=== PATIENT | female | born 1940 | race Caucasian/White ===

== ENCOUNTER 2018-04-27 07:53 | Observation (INO) | payer MEDICARE ==
[2018-04-25 09:04] VITALS: BP 137/63
[2018-04-25 09:10] LABS: BASOPHILS % (AUTO) 1.2 % (0.0-5.0); EOSINOPHILS % (AUTO) 12.1 % (0.0-8.0); HEMATOCRIT 41.4 % (36-48); LYMPHOCYTES % (AUTO) 16.8 % (21.0-51.0); MEAN CORPUSCULAR HEMOGLOBIN 35.2 pg (27.0-33.0); MEAN CORPUSCULAR HGB CONC 33.9 g/dL (32.0-36.0); MEAN CORPUSCULAR VOLUME 103.9 fL (79-99); NEUTROPHILS % (AUTO) 56.9 % (40.0-77.0); PLATELET COUNT (AUTO) 263 K/uL (130-400); RED BLOOD CELL COUNT(AUTO) 3.99 MIL/uL (4.00-5.50); RED CELL DISTRIBUTION WIDTH 12.4 % (11.0-15.5); WHITE BLOOD COUNT (AUTO) 6.1 K/uL (4.8-10.8)
[2018-04-25 09:14] LABS: CREATININE 1.2 mg/dL (0.5-1.5); POTASSIUM 5.3 mmol/L (3.5-5.1)
[2018-04-25 09:20] LABS: INR 0.98 (0.85-1.15); PARTIAL THROMBOPLASTIN TIME 28.2 SEC (26.3-35.5); PROTHROMBIN TIME 10.3 SEC (9.6-11.6)
[2018-04-27] VITALS (10 sets, daily range): BP systolic 105–135; BP diastolic 43–79
[~2018-04-27] VITALS: Ht 157.5 cm; Wt 51.6 kg
[~2018-04-27 07:53] MED LIST: ASPI-555 PO; CEFAZOLIN SODIUM 1 GM VIAL IVP SCH; CLOP75TA14 PO; ESOM40CA PO; LEVO88TA7 PO; METO-408 PO; PIND10TA2 PO; SIMV20TA6 PO; SODIUM CHLORIDE 0.9% 1000ML 1,000 ML IV SCH; VENL150T3 PO
[2018-04-27] MEDS ORDERED: BUPIVACAINE/PF 0.25% 30ML VIAL IJ ONE (12:52)
[2018-04-27] MEDS ORDERED: MEPERIDINE-PF 25 MG/ML SYG ONE ×3 (12:52→13:34)
[2018-04-27] MEDS ORDERED: MIDAZOLAM HCL 1 MG/ML 2ML VIAL ONE ×3 (12:53→13:34)
[2018-04-27] MEDS ORDERED: LIDOCAINE HCL 1% MDV 50ML VIAL ONE (12:53)
[2018-04-27] MEDS ORDERED: IOHEXOL-350 50ML VIAL IV ONE (13:44)
[2018-04-27] MEDS ORDERED: ACETAMINOPHEN 325 MG TAB PO PRN (14:30)
[2018-04-27] MEDS: METOPROLOL TARTRATE 25 MG TAB PO SCH (20:09)
[2018-04-27] MEDS ORDERED: NON-FORMULARY MEDICATION 1 EACH (Pindolol 5 MG) PO SCH (21:00)
[2018-04-27] MEDS ORDERED: SIMVASTATIN 20 MG TABLET PO SCH (21:00)
[2018-04-27] MEDS: ACETAMINOPHEN-CODEINE 300/30MG TAB PO PRN (22:54)
[2018-04-28] VITALS: BP 100/70
[2018-04-28 04:00] VITALS: BP 96/56
[2018-04-28] MEDS ORDERED: LEVOTHYROXINE 88 MCG TABLET PO SCH (06:30)
[2018-04-28 07:39] VITALS: BP 100/61
[2018-04-28] MEDS: METOPROLOL TARTRATE 25 MG TAB PO SCH (08:49)
[2018-04-28] MEDS: ACETAMINOPHEN-CODEINE 300/30MG TAB PO PRN (08:52)
[2018-04-28] MEDS ORDERED: PANTOPRAZOLE SODIUM 40 MG TABLET.DR PO SCH (09:00)
[2018-04-28] MEDS ORDERED: VENLAFAXINE HCL XR 37.5 MG CAP PO SCH (09:00)
[2018-04-28] MEDS ORDERED: ASPIRIN 81MG TAB.CHEW PO SCH (09:00)
[2018-04-28] MEDS ORDERED: CLOPIDOGREL BISULFATE 75 MG TAB PO SCH (09:00)
[2018-04-28 11:07] VITALS: BP 120/64
== END 2018-04-28 13:40 | disposition home or self-care (01) ==
LOC: DAH 07:53 → DAHIP 07:54 → 2DH 15:28
PROVIDERS: ADMIT Internal Medicine Critical Care Medicine; ATTEND Internal Medicine Critical Care Medicine
DX: I49.5 Sick sinus syndrome (principal); R55 Syncope and collapse; I44.1 Atrioventricular block, second degree; I10 Essential (primary) hypertension; E78.5 Hyperlipidemia, unspecified; E03.9 Hypothyroidism, unspecified; I25.10 Atherosclerotic heart disease of native coronary artery without angina pectoris; Z79.02 Long term (current) use of antithrombotics/antiplatelets; Z79.82 Long term (current) use of aspirin; Z79.890 Hormone replacement therapy; Z88.1 Allergy status to other antibiotic agents; Z88.8 Allergy status to other drugs, medicaments and biological substances
CPT/HCPCS: 33208; 33284; 36415 ×2; 71045; 80048; 84132; 85025; 85610; 85730; 93005; A4606; C1785; C1898 ×2; G0378 ×30; J2175 ×2; J2250 ×2; J3490 ×2; J7030; Q9967; 99156; 99157